=== PATIENT | female | born 1995 | race Caucasian/White ===

== ENCOUNTER 2020-01-29 17:19 | Emergency (ER) | payer OTHER, SELFPAY ==
[2020-01-29 17:34] VITALS: BP 115/80; PULSE 94; RESP 16; TEMP 37.1; O2SAT 100
--- NOTE | 2020-01-29 21:04 | PC.NURSE ---
PATIENT CALLED AT THIS TIME IN WAITING ROOM, NO ANSWER.
--- NOTE | 2020-01-29 21:09 | PC.NURSE ---
PATIENT CALLED AGAIN AT THIS TIME. NO ANSWER.
== END 2020-01-29 21:09 | disposition left against medical advice (07) ==
LOC: ANHED 18:17
DX: Z53.21 Procedure and treatment not carried out due to patient leaving prior to being seen by health care provider (principal)
CPT/HCPCS: 99199

== ENCOUNTER 2022-12-21 13:37 | Emergency (ER) | payer OTHER, SELFPAY ==
[2022-12-21 13:38] VITALS: BP 102/66; PULSE 92; RESP 16; TEMP 36.6; O2SAT 100
--- NOTE | 2022-12-21 14:06 | PC.NURSE ---
pt seen talking with discharged patient and asking for ride in vestibule. pt visualized leaving amb out of vestibule in no acute distress with no issue.
== END 2022-12-21 14:06 | disposition left against medical advice (07) ==
LOC: ANHED 14:32
DX: R56.9 Unspecified convulsions (principal)
CPT/HCPCS: 99199

== ENCOUNTER 2024-07-16 16:39 | Inpatient (IN) | payer OTHER, SELFPAY ==
[2024-07-16] VITALS (8 sets, daily range): BP systolic 94–116; BP diastolic 56–76; PULSE 60–101; RESP 9–20; TEMP 36.8–37.3; O2SAT 97–100; BMI 24.9
--- NOTE | ~2024-07-16 | CT_ITS ---
EXAMINATION: CT brain wo con DATE: 07/16/2024 18:03 INDICATION: Seizure. TECHNIQUE: Computed tomography (CT) of the head was performed without intravenous contrast. The mA wa s adjusted according to patient size. Iterative reconstruction technique was employed. The dose-lengt h product was 605.33 mGy-cm. COMPARISON: None FINDINGS: There is no intracranial hemorrhage, acute infarction, or abnormal intracranial mass lesion . The ventricles are normal in size. There is mild mucosal thickening in the paranasal sinuses. The o rbits are normal. The mastoid air cells are normal. IMPRESSION: 1. Normal brain. Reviewed, dictated and finalized at location A. IMPRESSION: 1. Normal brain.
--- NOTE | 2024-07-16 16:39 | ECG_ITS ---
Test Date: 2024-07-16 16:39:22 Measurements Intervals [place] Rate: 95 P: 54 DE: 112 QRS: 85 QRSD: 84 T: 60 QT: 332 QTc: 418 Interpretive Statements SINUS RHYTHM WITH SHORT DE INTERVAL POSSIBLE RIGHT VENTRICULAR CONDUCTION DELAY [RSR (QR) IN V1/V2] NONSPECIFIC ST & T-WAVE ABNORMALITY No previous ECG available for comparison Electronically Signed On 07-17-2024 15:31:45 CDT by Arlene Banerjee M.D.
[2024-07-16] MEDS: LORazepam INJ (*CRX) 2 MG/ML VIAL 1 MG IV PUSH (16:55)
[2024-07-16 17:05] LABS: Basophils Absolute Auto 0.1 K/mm3 (0.0-0.1); Basophils Percent Auto 0.8 % (0.2-1.2); Eosinophils Percent Auto 0.2 % (0-4.4); Hematocrit 39.8 % (37.0-47.0); Hemoglobin 12.8 g/dL (12.0-15.0); Immature Granulocyte Absolute 0.02 K/mm3 (0.00-0.031); Immature Granulocyte Percent A 0.3 % (0-0.5); Lymphocytes Absolute Auto 1.39 K/mm3 (0.9-3.2); Lymphocytes Percent Auto 23.4 % (18.3-44.2); Mean Corpuscular HGB Conc 32.2 g/dl (32-36); Mean Corpuscular Hemoglobin 26.7 pg (26-34); Mean Corpuscular Volume 82.9 fl (80-100); Mean Platelet Volume 10.1 fl (7.4-10.4); Monocytes Absolute Auto 0.2 K/mm3 (0.1-0.6); Monocytes Percent Auto 3.9 % (2.6-8.5); Neutrophils Absolute Auto 4.2 K/mm3 (1.3-6.7); Neutrophils Percent Auto 71.4 % (45.5-73.1); Platelet Count Result 220 k/mm3 (150-375); Red Cell Distribution Width 13.7 % (11.5-14.5); White Blood Count 5.9 K/mm3 (4.5-10.0)
[2024-07-16 17:14] LABS: Lactic Acid Reflex 2.1 mmol/L (0.7-2.0)
[2024-07-16 17:16] LABS: Alanine Aminotransferase 119 U/L (6-35); Albumin Level 4.1 g/dL (3.5-5.1); Alkaline Phosphatase 73 U/L (38-126); Anion Gap 11 mmol/L (4-12); Aspartate Amino Transferase 80 U/L (14-36); Bilirubin,Total 0.7 mg/dL (0.2-1.3); Blood Urea Nitrogen 17 mg/dL (7-17); Calcium 8.7 mg/dL (8.4-10.2); Carbon Dioxide 25 mmol/L (22-30); Chloride 101 mmol/L (98-107); Estimated CRCL calculation 98 ml/min; Estimated Glomerular Filt Rate > 60; Glucose 112 mg/dL (65-110); Potassium 3.5 mmol/L (3.4-5.0); Sodium 137 mmol/L (137-145)
[2024-07-16 17:22] LABS: Ethanol < 10 mg/dL (<10)
[2024-07-16 17:23] LABS: BEDSIDEPREGUCG Negative
[2024-07-16 17:38] LABS: Add Urine Microscopic? YES; Appearance Urine Cloudy (Clear); Bacteria Urine None Seen /hpf; Bilirubin Urine 1+ (Negative); Blood Urine Negative (Negative); Color Urine Dark Yellow (Yellow); Glucose Urine UA Negative (Negative); Ketones Urine 3+ mg/dL (Negative); Leukocyte Esterase Ur Negative LEU/UL (Negative); Mucus Urine Present /lpf; Nitrate Urine Negative (Negative); Protein Urine 1+ mg/dL (Negative); RBC Urine 0-2 /hpf (0-2); Specific Grav Ur 1.037 (1.001-1.035); Squamous Epithelial Cell Urine Moderate /hpf (Few); WBC Urine 0-5 /hpf (0-3)
[2024-07-16 17:42] LABS: Barbiturate Screen Urine Negative (Negative); Benzodiazepines Screen Urine Negative (Negative)
[2024-07-16] MEDS: SODIUM CHLORIDE 0.9% IV 1,000 ML 999 ML IV CONT (17:42)
[2024-07-16 17:59] LABS: Cannabinoid Screen Urine Negative (Negative); Cocaine Screen Urine Negative (Negative); Methadone Screen Urine Negative (Negative); Opiate Screen Urine Positive (Negative); Phencyclidine Screen Urine Negative (Negative)
[2024-07-16 18:43] LABS: Amphetamine Screen Urine Positive (Negative)
[2024-07-16] MEDS: SODIUM CHLORIDE 0.9% IV 1,000 ML 1000 ML IV CONT (19:25)
--- NOTE | 2024-07-16 19:36 | ED.SEIZURE ---
HPI - Seizure General Chief Complaint: Seizure Stated Complaint: seizures Source: EMS and police Mode of arrival: EMS History of Present Illness HPI Narrative: 28-year-old with a history of drug abuse was brought in from the long-term with repeated seizures as per the EMS she had 4 seizures while she was in the long-term and 1 upon arrival. Not much history can be obtained from the patient as she is postictal state MD complaint: seizure Onset (ago): hour(s) (1) Description of Episode: tonic-clonic movement Witnessed: Yes - by Other ( nurse and the police superintendent) Place: long-term Possible Precipitating Event: none Related Data Allergies Allergy/AdvReac Type Severity Reaction Status Date / Time Penicillins Allergy Mild Anaphylaxis Verified 07/16/24 16:54 tramadol Allergy Unknown N/V AND Verified 07/16/24 16:54 ITCHING ONDANSETRON HCL Allergy Unknown Hives / Uncoded 07/16/24 16:54 Red Face Review of Systems Review of Systems: ROS unobtainable: Yes unobtainable due to mental status Course Course Emergency Course: patient upon arrival to the ER had another seizure which I have not seen but per the nurses were in the room confirmed that it appears to be like a seizure. I did give her 1 mg of Ativan. And she has been sleeping . was notified by the after she had another seizure , will start Dr. Brenda Thacker suggested 1500 mg as loading dose. Vital Signs Vital signs: Vital Signs Temperature 37.0 C 07/16/24 16:44 Pulse Rate 101 H 07/16/24 16:44 Respiratory Rate 9 L 07/16/24 16:44 Blood Pressure 105/70 07/16/24 16:44 Oxygen Delivery Room Air 07/16/24 16:44 Temperature 37.0 C 07/16/24 16:44 Pulse Rate 80 07/16/24 18:45 Respiratory Rate 20 07/16/24 18:45 Blood Pressure 96/57 L 07/16/24 18:45 Pulse Oximetry 100 07/16/24 18:45 Oxygen Delivery Room Air 07/16/24 16:44 MDM - Seizure MDM Narrative Medical decision making narrative: 22-year-old with a history of abuse in the ER with recurrent seizures from chest CT and lab work , will consult Neurology Differential Diagnosis Differential diagnosis: Likely generalized seizure and new onset seizure Lab Data Attestation: I reviewed the patient's lab results. 07/16/24 16:53 07/16/24 16:52 Labs: Lab Results 07/16/24 07/16/24 07/16/24 Range/Units 16:52 16:53 17:16 WBC 5.9 (4.5-10.0) K/mm3 RBC 4.80 (4.2-5.4) M/mm3 Hgb 12.8 (12.0-15.0) g/dL Hct 39.8 (37.0-47.0) % MCV 82.9 (80-100) fl MCH 26.7 (26-34) pg MCHC 32.2 (32-36) g/dl RDW 13.7 (11.5-14.5) % Plt Count 220 (150-375) k/mm3 MPV 10.1 (7.4-10.4) fl Immature Gran % (Auto) 0.3 (0-0.5) % Neut % (Auto) 71.4 (45.5-73.1) % Lymph % (Auto) 23.4 (18.3-44.2) % [place] % (Auto) 3.9 (2.6-8.5) % Eos % (Auto) 0.2 (0-4.4) % Baso % (Auto) 0.8 (0.2-1.2) % Lymph # (Auto) 1.39 (0.9-3.2) K/mm3 [place] # (Auto) 0.2 (0.1-0.6) K/mm3 Eos # (Auto) 0.0 (0-0.3) K/mm3 Baso # (Auto) 0.1 (0.0-0.1) K/mm3 Abs Immat Gran (auto) 0.02 (0.00-0.031) K/mm3 Absolute Neuts (auto) 4.2 (1.3-6.7) K/mm3 Absolute Nucleated RBC 0.000 (0.0-0.012) K/mm3 Nucleated RBC % 0.0 (0.0-0.2) % Sodium 137 (137-145) mmol/L Potassium 3.5 (3.4-5.0) mmol/L Chloride 101 (98-107) mmol/L Carbon Dioxide 25 (22-30) mmol/L Anion Gap 11 (4-12) mmol/L BUN 17 (7-17) mg/dL Creatinine 0.60 L (0.7-1.0) mg/dL Estim Creat Clear Calc 98 ml/min Estimated GFR > 60 (59 - ) Glucose 112 H (65-110) mg/dL Lactic Acid 2.1 H (0.7-2.0) mmol/L Calcium 8.7 (8.4-10.2) mg/dL Total Bilirubin 0.7 (0.2-1.3) mg/dL AST 80 H (14-36) U/L ALT 119 H (6-35) U/L Alkaline Phosphatase 73 (38-126) U/L Total Protein 8.0 (6.3-8.2) g/dL Albumin 4.1 (3.5-5.1) g/dL Urine Color Dark yellow (Yellow) Urine Appearance Cloudy H (Clear) Urine pH
[2024-07-16 20:01] LABS: Reflex Lactic Acid Yes or No Add Lactic
[2024-07-16] MEDS: levETIRAcetam 1500MG/NACL100ML 1,500 MG/100 ML BAG 400 MG IVPB (20:12)
[2024-07-16] MEDS: SODIUM CHLORIDE 0.9% IV 1,000 ML 125 ML IV CONT (20:14)
--- NOTE | 2024-07-16 20:40 | PM.IMHP ---
H&P: HPI History of Present Illness Date/Time: 07/16/24 20:40 Chief Complaint: seizure Narrative: This is a 28-year-old female who was brought from correction facility due to seizures. In emergency room patient had a witnessed seizure. There is no history known of seizures about this patient. Patient has been placed in observation. Most of the history was obtained from reviewing medical records as patient is postictal. EXAMINATION: CT brain wo con DATE: 07/16/2024 18:03 INDICATION: Seizure. TECHNIQUE: Computed tomography (CT) of the head was performed without intravenous contrast. The mA was adjusted according to patient size. Iterative reconstruction technique was employed. The dose-length product was 605.33 mGy-cm. COMPARISON: None FINDINGS: There is no intracranial hemorrhage, acute infarction, or abnormal intracranial mass lesion. The ventricles are normal in size. There is mild mucosal thickening in the paranasal sinuses. The orbits are normal. The mastoid air cells are normal. IMPRESSION: 1. Normal brain. Review of Systems Review of Systems: ROS unobtainable: Yes unobtainable due to mental status (post ictal) [facility] Social History Social History Substance use type: other Last use: unknown; reported to be day 2 withdrawal; specific drug unknown Spiritual care concerns: No Meds Home Medications and Allergies Home Medications Medication Instructions Recorded Confirmed Type dicyclomine 20 mg tablet 20 mg PO BID 07/17/24 07/17/24 History hydroxyzine pamoate 25 mg capsule 25 mg PO BID PRN Anxiety 07/17/24 07/17/24 History hydroxyzine pamoate 50 mg capsule 50 mg PO BID 07/17/24 07/17/24 History Allergies Allergy/AdvReac Type Severity Reaction Status Date / Time Penicillins Allergy Mild Anaphylaxis Verified 07/16/24 16:54 tramadol Allergy Unknown N/V AND Verified 07/16/24 16:54 ITCHING ONDANSETRON HCL Allergy Unknown Hives / Uncoded 07/16/24 16:54 Red Face Vital Signs Vital Signs - 24 hr 07/16/24 16:44 07/16/24 16:44 07/16/24 17:00 Temperature 98.6 F Pulse Rate 101 H 60 Respiratory Rate 9 L 12 Blood Pressure 105/70 100/60 Pulse Oximetry 99 Oxygen Delivery Room Air 07/16/24 17:15 07/16/24 17:30 07/16/24 17:45 Temperature Pulse Rate 62 64 66 Respiratory Rate 13 14 15 Blood Pressure 102/58 L 116/64 97/67 L Pulse Oximetry 100 97 99 Oxygen Delivery 07/16/24 18:45 Temperature Pulse Rate 80 Respiratory Rate 20 Blood Pressure 96/57 L Pulse Oximetry 100 Oxygen Delivery Exam Narrative: lying in bed Const: General: comfortable, no acute distress, well developed, average body habitus and other (post ictal) Nutritional Appearance: average body habitus Orientation/consciousness: oriented to person, oriented to place and Other orientation findings (post ictal) Other: well appearing HENMT: Head: normal to inspection, normocephalic and atraumatic Ears: hearing grossly normal bilaterally Face/Nose/Sinus: normal facial exam Face and sinus: normal facial exam Eyes: General: appearance normal, both eyes and all related structures Pupils: Equal, round and reactive pupils present EOM: EOMs intact bilaterally Neck: Neck: full ROM, no lymphadenopathy and no JVD Thyroid: thyroid normal Lymphatic: no lymphadenopathy noted Resp: Effort & Inspection: normal respiratory effort and able to speak in complete sentences Auscultation: clear to auscultation bilaterally Cardio: Jugular venous distension: no JVD Rate: regular rate Rhythm: regular rhythm Heart sounds: S1 normal heart sound present and S2 normal heart sound present GI: GI Palp: Yes Soft to palpation and Yes No hepatosplenomegaly present : General: Yes deferred Skin: Rashes: no rashes Wounds: no wounds Neuro: General: tone normal, moves all extremities, no focal motor deficits, CN's II-XI intact bilaterally, Unable
[2024-07-16 20:49] LABS: Lactic Acid 0.8 mmol/L (0.7-2.0)
--- NOTE | 2024-07-16 21:09 | ADMGEN ---
This patient, Jossie Colin, was admitted to 3 Med Surg Room 307-01. Patient/family oriented to hospital policies and general routines including ID bracelet, bed and alarms, visiting hours, pain management, procedures, bathroom and other care routines, personal items, smoking policy, room service/diet, and visiting hours. Information on how to activate the Rapid Response Team has been discussed. Patient/Family are encouraged to report perceived risks to care and to ask questions if they do not understand what they are told or what they should do.
--- NOTE | 2024-07-16 23:05 | PC.NURSE ---
attempted to call box person at the given number, but they stated it is the wrong number
[2024-07-17] VITALS: PULSE 83
[2024-07-17] MEDS: SODIUM CHLORIDE 0.9% IV 1,000 ML 125 ML IV CONT (03:08)
[2024-07-17 04:00] VITALS: PULSE 62
[2024-07-17 05:34] VITALS: BP 112/60; PULSE 74; RESP 16; TEMP 36.4; O2SAT 99
[2024-07-17 08:00] VITALS: PULSE 60
[2024-07-17 08:13] VITALS: O2SAT 99
--- NOTE | 2024-07-17 09:23 | PM.DS ---
DS: Admitting Diagnosis Discharge Date 07/17/2024 Admitting Diagnosis New onset seizures DS: Summary Hospital Course Hospital Course: This is a 28-year-old female who was brought from correction facility due to seizures. In emergency room patient had a witnessed seizure. There is no history known of seizures about this patient. Patient has been placed in observation. Most of the history was obtained from reviewing medical records as patient is postictal. Today during the examination patient reports that she was using fentanyl and heroin IV. She denies any past medical history of she has seizure. We believe her the new onset of seizures seizure in the ED it is due to the withdrawal from the drug abuse. Patient wants to leave AMA today in spite of insisting to get medical care. Patient was explained the consequences of AMA including . Patient is aware and able to understand the consequence but still insist on leaving the medical facility. We advised to seek care or call 911 in case of events including chest pain, palpitation, seizure or other symptoms. Patient has UDS positive for opiates and amphetamine. Status at Discharge Cognitive/behavioral status at discharge: AMA Time Spent with Patient Time attestation: Total time spent providing and/or coordinating discharge services:45mins Exam Narrative: lying in bed Const: General: comfortable, no acute distress, well developed, average body habitus and other (post ictal) Nutritional Appearance: average body habitus Orientation/consciousness: oriented to person, oriented to place, patient oriented x3 and Other orientation findings (post ictal) Other: well appearing but agitated HENMT: Head: normal to inspection, normocephalic and atraumatic Ears: hearing grossly normal bilaterally Face/Nose/Sinus: normal facial exam Face and sinus: normal facial exam Eyes: General: appearance normal, both eyes and all related structures Neck: Neck: full ROM, no lymphadenopathy and no JVD Thyroid: thyroid normal Lymphatic: no lymphadenopathy noted Resp: Effort & Inspection: normal respiratory effort and able to speak in complete sentences Cardio: Jugular venous distension: no JVD : General: Yes deferred Skin: Rashes: no rashes Wounds: no wounds Neuro: General: oriented to person, oriented to place, patient oriented x3, tone normal, moves all extremities, no focal motor deficits, CN's II-XI intact bilaterally, Unable to assess gait and other (post ictal) Cognition (Neuro): normal cognition and abnormal cognition (post ictal) Speech: normal speech Motor exam (neuro): 5/5 motor strength present throughout DS: Data Data Completed and Pending Labs on day of discharge: Labs from last 24 hours 07/16/24 07/16/24 07/16/24 20:36 17:21 17:16 WBC RBC Hgb Hct MCV MCH MCHC RDW Plt Count MPV Immature Gran % (Auto) Neut % (Auto) Lymph % (Auto) [place] % (Auto) Eos % (Auto) Baso % (Auto) Lymph # (Auto) [place] # (Auto) Eos # (Auto) Baso # (Auto) Abs Immat Gran (auto) Absolute Neuts (auto) Absolute Nucleated RBC Nucleated RBC % Sodium Potassium Chloride Carbon Dioxide Anion Gap BUN Creatinine Estim Creat Clear Calc Estimated GFR Glucose Lactic Acid 0.8 Calcium Total Bilirubin AST ALT Alkaline Phosphatase Total Protein Albumin Urine Color Dark yellow Urine Appearance Cloudy H Urine pH 6.0 Ur Specific [place] 1.037 H Urine Protein 1+ H Urine Glucose (UA) Negative Urine Ketones 3+ H Ur Blood (Man) Negative Urine Nitrate Negative Urine Bilirubin 1+ H Urine Urobilinogen 1.0 Leukocyte Esterase Rfl Negative Urine RBC 0-2 Urine WBC 0-5 Ur Squamous Epith Cells Moderate Urine Bacteria None seen Urine Casts 6-10 Urine Mucus Present POC Urine HCG, Qual Negative POC Ur Pr
--- NOTE | 2024-07-17 11:38 | WPDNEURCNPN ---
Consult date: 07/17/24 HPI: Jossie Colin is a 28 year old female Admitted to the hospital on transfer from the correction facility due to the seizures and patient did have a witnessed seizure in the emergency room. Unfortunately she left the hospital against medical advise before I saw the patient. [facility] Social History Social History Smoking status: Never smoker Alcohol intake: never Substance use: current Substance use type: opiates Other substance usage details: fentanyl Last use: 07/14/24 Do You Feel Safe in your Home?: Yes Lack of Transportation: No Lack of Food: Never True Current Housing: I Have Housing Concerned About Future Housing: No Difficulty Paying Gas/Electric Bills: No Difficulty Paying for Meds: No Currently Unemployed: No Education: High School Diploma/GED Difficulty w/ Childcare or Family Care: No Spiritual care concerns: No Meds Home Medications and Allergies Home Medications Medication Instructions Recorded Confirmed Type dicyclomine 20 mg tablet 20 mg PO BID 07/17/24 07/17/24 History hydroxyzine pamoate 25 mg capsule 25 mg PO BID PRN Anxiety 07/17/24 07/17/24 History hydroxyzine pamoate 50 mg capsule 50 mg PO BID 07/17/24 07/17/24 History Allergies Allergy/AdvReac Type Severity Reaction Status Date / Time Penicillins Allergy Mild Anaphylaxis Verified 07/16/24 16:54 tramadol Allergy Unknown N/V AND Verified 07/16/24 16:54 ITCHING ONDANSETRON HCL Allergy Unknown Hives / Uncoded 07/16/24 16:54 Red Face Vital Signs Vital Signs - 24 hr 07/16/24 16:44 07/16/24 16:44 07/16/24 17:00 Temperature 37.0 C Pulse Rate 101 H 60 Respiratory Rate 9 L 12 Blood Pressure 105/70 100/60 Pulse Oximetry 99 Oxygen Delivery Room Air Fraction of Inspired Oxygen 07/16/24 17:15 07/16/24 17:30 07/16/24 17:45 Temperature Pulse Rate 62 64 66 Respiratory Rate 13 14 15 Blood Pressure 102/58 L 116/64 97/67 L Pulse Oximetry 100 97 99 Oxygen Delivery Fraction of Inspired Oxygen 07/16/24 18:45 07/16/24 20:56 07/16/24 21:32 Temperature 37.3 C 36.8 C Pulse Rate 80 86 88 Respiratory Rate 20 20 16 Blood Pressure 96/57 L 100/76 94/56 L Pulse Oximetry 100 99 100 Oxygen Delivery Fraction of Inspired Oxygen 07/17/24 00:00 07/17/24 00:00 07/17/24 05:34 Temperature 36.4 C L Pulse Rate 83 74 Respiratory Rate 16 Blood Pressure 112/60 Pulse Oximetry 99 Oxygen Delivery Room Air Fraction of Inspired Oxygen 07/17/24 04:00 07/17/24 08:13 07/17/24 08:00 Temperature Pulse Rate 62 60 Respiratory Rate Blood Pressure Pulse Oximetry 99 Oxygen Delivery Room Air Fraction of Inspired Oxygen 21 Results Labs 07/16/24 16:53 07/16/24 16:52 Labs: Short CBC 07/16/24 Range/Units 16:53 WBC 5.9 (4.5-10.0) K/mm3 Hgb 12.8 (12.0-15.0) g/dL Hct 39.8 (37.0-47.0) % Plt Count 220 (150-375) k/mm3 BMP 07/16/24 16:52 Sodium 137 Potassium 3.5 Chloride 101 Carbon Dioxide 25 BUN 17 Creatinine 0.60 L Glucose 112 H Calcium 8.7 Liver Function 07/16/24 Range/Units 16:52 Total Bilirubin 0.7 (0.2-1.3) mg/dL AST 80 H (14-36) U/L ALT 119 H (6-35) U/L Alkaline Phosphatase 73 (38-126) U/L Albumin 4.1 (3.5-5.1) g/dL Urine 07/16/24 Range/Units 17:16 Urine Color Dark yellow (Yellow) Urine Appearance Cloudy H (Clear) Urine pH 6.0 (5.0-9.0) Ur Specific [place] 1.037 H (1.001-1.035) Urine Protein 1+ H (Negative) mg/dL Urine Glucose (UA) Negative (Negative) mg/dL
--- NOTE | 2024-07-17 12:07 | PC.NURSE ---
Received report from night RN that this pt was from the [facility] and had two guards watching her. Went and assessed pt who was tremoring and diaphoretic. Pt requesting a dose of withdrawal meds . Called provider who asked for details, gave a quick synopsis. Provider asked how we dealt with opioid withdrawals; I let him know we did not have a protocol to follow. I let him know that I could pull up a COWS scale to use. When the patient was scored, she scored a 10 at 0800. Provider gave verbal orders. This RN heard officers stating that they were releasing her from their custody. Pt then called out that she wanted a cab called. This RN to pt room to offer medications, but pt stated no she wanted a cab to take her home. Pt advised via provider through RN that we would not be able to call her a cab. Pt given numbers. PRovider and RN to bedside to explain seriousness of opioid withdrawal and concern for pt safety. Pt educated on seizures, calling 911, returning to ED if further seizures occur. Pt states understanding. AMA form signed and pt ambulated down busby to elevator. Verbal orders never put into system as pt left.
== END 2024-07-17 09:20 | disposition left against medical advice (07) | DRG 770 ==
LOC: ANHED 19:57 → ANH3MEDSUR 20:51
PROVIDERS: Admitting Provider Internal Medicine; Emergency Provider Family Medicine; Visit Provider General Practice
DX: F11.13 Opioid abuse with withdrawal (principal); R56.9 Unspecified convulsions
CPT/HCPCS: 36415; 70450; 80053; 80307; 81001; 81025; 83605; 85025; 93005; 96361; 96374; 99285; J1953; J2060; J7030

== ENCOUNTER 2024-08-10 00:54 | Emergency (ER) | payer OTHER, SELFPAY ==
--- NOTE | ~2024-08-10 | CT_ITS ---
Non-contrast Head CT History: Altered mental status, overdose COMPARISON: 07/16/2024 Technique: Axial non-contrast imaging of the brain was performed. Dose reduction technique was used on this scan by utilizing automated exposure control and iterative reconstruction technique. The dose -length product (DLP) was 605.33 mGy-cm. Findings: There is no evidence of intracranial hemorrhage, mass lesion, or acute infarct. Brain par enchyma appears normal. The ventricles and subarachnoid spaces are normal in size. The calvarium ap pears normal. The visualized paranasal sinuses and mastoid air cells are clear. Impression: No significant abnormality seen. Reviewed, dictated and finalized at location . Impression: No significant abnormality seen.
--- NOTE | ~2024-08-10 | XR_ITS ---
Portable chest x-ray Comparison: None Clinical History: Overdose Findings: Lungs are clear, without focal consolidation or pleural effusion. Cardiomediastinal silho uette is unremarkable. Bones and soft tissues are unremarkable. Impression: Normal chest. Reviewed, dictated and finalized at location M. Impression: Normal chest.
[2024-08-10 00:53] VITALS: PULSE 124; RESP 16; TEMP 36.6; O2SAT 100
[2024-08-10 01:05] LABS: Basophils Percent Auto 0.4 % (0.2-1.2); Eosinophils Percent Auto 0.1 % (0-4.4); Hematocrit 36.7 % (37.0-47.0); Hemoglobin 12.2 g/dL (12.0-15.0); Immature Granulocyte Absolute 0.02 K/mm3 (0.00-0.031); Immature Granulocyte Percent A 0.3 % (0-0.5); Lymphocytes Absolute Auto 1.23 K/mm3 (0.9-3.2); Lymphocytes Percent Auto 15.7 % (18.3-44.2); Mean Corpuscular HGB Conc 33.2 g/dl (32-36); Mean Corpuscular Hemoglobin 27.1 pg (26-34); Mean Corpuscular Volume 81.4 fl (80-100); Mean Platelet Volume 9.9 fl (7.4-10.4); Monocytes Absolute Auto 0.5 K/mm3 (0.1-0.6); Monocytes Percent Auto 6.8 % (2.6-8.5); Neutrophils Percent Auto 76.7 % (45.5-73.1); Platelet Count Result 201 k/mm3 (150-375); Red Blood Count 4.51 M/mm3 (4.2-5.4); Red Cell Distribution Width 13.8 % (11.5-14.5); White Blood Count 7.8 K/mm3 (4.5-10.0)
[2024-08-10 01:18] LABS: Alanine Aminotransferase 170 U/L (6-35); Albumin Level 4.1 g/dL (3.5-5.1); Alkaline Phosphatase 62 U/L (38-126); Anion Gap 9 mmol/L (4-12); Aspartate Amino Transferase 111 U/L (14-36); Bilirubin,Total 0.7 mg/dL (0.2-1.3); Blood Urea Nitrogen 14 mg/dL (7-17); Calcium 8.8 mg/dL (8.4-10.2); Carbon Dioxide 26 mmol/L (22-30); Chloride 103 mmol/L (98-107); Estimated CRCL calculation 102 ml/min; Estimated Glomerular Filt Rate > 60; Glucose 109 mg/dL (65-110); Potassium 4.1 mmol/L (3.4-5.0); Sodium 138 mmol/L (137-145)
--- NOTE | 2024-08-10 02:15 | ED.GENADULT ---
HPI - General Adult General Chief complaint: Unspecified Stated complaint: possible OD on opiates Time Seen by Provider: 08/10/24 01:46 Source: patient, EMS and police Mode of arrival: EMS Limitations: no limitations History of Present Illness HPI narrative: Patient is a 28-year-old female who presents the ED via EMS with report of possible opioid overdose. Patient reports she was driving from a gas station when she was pulled over by the police. She was arrested for an outstanding warrant. Per PD, patient then became unresponsive in the back of the police car. They administered intranasal Narcan and patient became alert again. They did report possible seizure-like activity. EMS was then notified to bring the patient here. Patient denies previous seizure history. She states she feels slightly jittery currently from the Narcan. She has overdose previously and required Narcan previously. She admits to daily fentanyl use. She snorts the fentanyl. Denies IVDA. She did use fentanyl earlier today. She states the police believes she swallowed something in the back of the car but she denies this. Denies cough, shortness of breath, nausea, dizziness. Does complain of fuzziness to her head. Related Data Home Medications Medication Instructions Recorded Confirmed dicyclomine 20 mg tablet 20 mg PO BID 07/17/24 07/17/24 hydroxyzine pamoate 25 mg capsule 25 mg PO BID PRN Anxiety 07/17/24 07/17/24 hydroxyzine pamoate 50 mg capsule 50 mg PO BID 07/17/24 07/17/24 Allergies Allergy/AdvReac Type Severity Reaction Status Date / Time Penicillins Allergy Mild Anaphylaxis Verified 08/10/24 01:00 tramadol Allergy Unknown N/V AND Verified 08/10/24 01:00 ITCHING ONDANSETRON HCL Allergy Unknown Hives / Uncoded 08/10/24 01:00 Red Face Review of Systems Review of Systems: All systems reviewed & are unremarkable except as noted in HPI. All systems reviewed & are unremarkable except as noted in HPI and below PMFSH Social History Social History Smoking status: Never smoker Alcohol intake: never Substance use: current Substance use type: opiates 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, snorts, denies IVDA Do You Feel Safe in your Home?: Yes Lack of Transportation: No Lack of Food: Never True Current Housing: I Have Housing Concerned About Future Housing: No Difficulty Paying Gas/Electric Bills: No Difficulty Paying for Meds: No Currently Unemployed: No Education: High School Diploma/GED Difficulty w/ Childcare or Family Care: No Spiritual care concerns: No Exam Narrative: GENERAL: Mildly disheveled and unkempt appearing, non-toxic, in no acute distress. HEAD: Normocephalic, atraumatic. RESPIRATORY: Airway patent, respirations nonlabored. Clear to auscultation bilaterally, no rales, rhonchi, wheezing. CARDIOVASCULAR: Regular rate and rhythm without murmurs, rubs, or gallops. MUSCULOSKELETAL: Moves all extremities. No gross deformities. SKIN: Warm, dry, normal color. Dirt on hands and arms. NEURO: A&O X3. Speech clear. Cranial nerves II-XII grossly intact. No ataxic movements. PSYCHIATRIC: Mildly flat affect. Normal interaction. Course Vital Signs Vital signs: Vital Signs Temperature 97.8 F 08/10/24 00:53 Pulse Rate 124 H 08/10/24 00:53 Respiratory Rate 16 08/10/24 00:53 Pulse Oximetry 100 08/10/24 00:53 Oxygen Delivery Room Air 08/10/24 00:53 Temperature 97.8 F 08/10/24 00:53 Pulse Rate 124 H 08/10/24 00:53 Respiratory Rate 16 08/10/24 00:53 Pulse Oximetry 100 08/10/24 00:53 Oxygen Delivery Room Air 08/10/24 00:53 Medical Decision Making [facility] Narrative Medical decision making narrative: Patient presented to ED after suspected opioid overdose after being pulled over by the police. Patient tachycardic upon arrival, oxygen stable on room air. She was given IN Narca
[2024-08-10] MEDS: SODIUM CHLORIDE 0.9% IV 1,000 ML 999 ML IV CONT (02:37)
[2024-08-10 02:47] LABS: Ethanol < 10 mg/dL (<10)
[2024-08-10 02:59] LABS: Magnesium 1.7 mg/dL (1.6-2.3)
--- NOTE | 2024-08-10 04:52 | PC.NURSE ---
contacted and wnts updates when patient is ready to leave. [phone] Darshana.
[2024-08-10 05:07] LABS: Barbiturate Screen Urine Negative (Negative); Benzodiazepines Screen Urine Negative (Negative)
[2024-08-10 05:12] VITALS: BP 110/76; PULSE 79; RESP 15; O2SAT 97
[2024-08-10 05:13] LABS: Add Urine Microscopic? YES; Appearance Urine Cloudy (Clear); Bacteria Urine 1+ /hpf; Bilirubin Urine Negative (Negative); Blood Urine 1+ (Negative); Color Urine Yellow (Yellow); Glucose Urine UA Negative (Negative); Ketones Urine Trace mg/dL (Negative); Leukocyte Esterase Ur 1+ LEU/UL (Negative); Need Manual Microscopic Reviewed; Nitrate Urine Negative (Negative); Protein Urine 1+ mg/dL (Negative); Specific Grav Ur 1.021 (1.001-1.035); Squamous Epithelial Cell Urine Moderate /hpf (Few); WBC Urine 0-5 /hpf (0-3); pH Urine 7.5 (5.0-9.0)
[2024-08-10 05:14] LABS: Cannabinoid Screen Urine Negative (Negative); Cocaine Screen Urine Negative (Negative); Methadone Screen Urine Negative (Negative); Opiate Screen Urine Negative (Negative); Phencyclidine Screen Urine Negative (Negative)
[2024-08-10 05:25] LABS: Amphetamine Screen Urine Positive (Negative)
== END 2024-08-10 05:12 | disposition home or self-care (01) ==
PROVIDERS: Emergency Medicine; Emergency Provider Physician Assistant
DX: T40.411A Poisoning by fentanyl or fentanyl analogs, accidental (unintentional), initial encounter (principal)
CPT/HCPCS: 36415; 70450; 71045; 80053; 80307; 81001; 83735; 85025; 87086; 87088; 96360; 99284; J7030

== ENCOUNTER 2025-10-05 10:39 | Emergency (ER) | payer OTHER, SELFPAY ==
[2025-10-05 10:42] VITALS: BP 109/86; PULSE 103; RESP 16; TEMP 36.4; O2SAT 100
[2025-10-05 10:48] VITALS: BP 109/86; PULSE 103; RESP 17; O2SAT 100
--- NOTE | 2025-10-05 11:44 | ED.SEIZURE ---
HPI - Seizure General Chief Complaint: Seizure Stated Complaint: seizure Time Seen by Provider: 10/05/25 11:25 Source: patient and EMS Mode of arrival: EMS Limitations: no limitations History of Present Illness HPI Narrative: This is a 29-year-old female with reported history of seizure disorder who presents to the ED from senior living for seizure activity. Per EMS, patient began to have seizure activity while in senior living the last approximately 1 minute. Apparently her blood sugar was 68 there so she was given 200 mL of D10 and repeat sugar after that was 248. Patient reports that she remembers having a seizure. She feels back to her normal self at this time. 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 Seizure History: Yes Related Data Home Medications ?Medication ?Instructions ?Recorded ?Confirmed ?Last Taken ?Type dicyclomine 20 mg tablet 20 mg PO BID 07/17/24 07/17/24 07/16/24 History hydroxyzine pamoate 25 mg capsule 25 mg PO BID PRN Anxiety 07/17/24 07/17/24 Unknown History hydroxyzine pamoate 50 mg capsule 50 mg PO BID 07/17/24 07/17/24 07/16/24 History Allergies Allergy/AdvReac Type Severity Reaction Status Date / Time Penicillins Allergy Mild Anaphylaxis Verified 08/10/24 01:00 tramadol Allergy Unknown N/V AND Verified 08/10/24 01:00 ITCHING ONDANSETRON HCL Allergy Unknown Hives / Uncoded 08/10/24 01:00 Red Face Review of Systems Review of Systems: Gen.: Denies fevers or chills Eyes: Denies eye pain or visual change ENT: Denies congestion Respiratory: Denies shortness of breath or cough CV: Denies chest pain or palpitations GI: Denies abdominal pain nausea, emesis or diarrhea denies burning, urgency, frequency or hematuria Musculoskeletal: Denies back pain or muscle pain Neuro: Denies numbness, tingling, weakness or focal weakness Skin: Denies rash Except as documented, all other systems reviewed and negative PMFSH Social History Social History Smoking status: Never smoker Alcohol intake: never Substance use: current Substance use type: opiates 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, snorts, 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 CARDIOVASCULAR: Regular rate and rhythm without murmurs rubs or gallops. ABDOMINAL: Soft, nontender, nondistended, no rebound or guarding MUSCULOSKELETAl: Moves all extremities. No clubbing, cyanosis or edema. NEURO: Awake and alert. Following commands, speech normal, no focal deficits SKIN:: Warm, dry. No rashes lesions or abrasions PSYCHIATRIC: Normal affect/mood, Course Vital Signs Vital signs: Vital Signs Temperature 97.6 F 10/05/25 10:42 Pulse Rate 103 H 10/05/25 10:42 Respiratory Rate 16 10/05/25 10:42 Blood Pressure 109/86 10/05/25 10:42 Pulse Oximetry 100 10/05/25 10:42 Oxygen Delivery Room Air 10/05/25 10:42 Temperature 97.6 F 10/05/25 10:42 Pulse Rate 103 H 10/05/25 10:48 Respiratory Rate 17 10/05/25 10:48 Blood Pressure 109/86 10/05/25 10:48 Pulse Oximetry 100 10/05/25 10:48 Oxygen Delivery Room Air 10/05/25 10:42 MDM - Seizure MDM Narrative Medical decision making narrative: 29-year-old female Presenting for seizure active. On initial evaluation patient was in no acute distress afebrile, hemodynamic stable. Differentials include but are not limited to: Epilepsy, PN ES, hypoglycemia, electrolyte abnormality Notable exam findings: Nonfocal neuro exam, heart and lungs clear. Abdomen soft nontender. Patient does reportedly have a history of seizures but is not any medications for this. Per nursing staff, patient was reportedly having seizure-like activity while awaiting a bed but they were able to place the and above the patient's head which slowly drifted down towards her head and after sternal rub, she woke up immediately. Low suspicion that patient has having epileptic seizures. On my evaluation of the patient, she had return to baseline she may have had some level of hypoglycemia earlier but this appears to be improved at this time. Patient is requesting to go home at this time. I did discuss her withdrawal from fentanyl and discussed rehabilitation options with her and she was agreeable to looking at those options. Patient was deemed appropriate for discharge at this time. Patient was advised follow-up with their PCP in the next week for re-evaluation. Patient was agreeable to this plan. Given strict return precautions. Medical Records Attestation: I reviewed the patient's medical records. Discharge Plan Discharge Clinical Impression: Episode of shaking Patient Disposition: Home Condition: Stable Instructions: Antibiotic Form, Nonepileptic Seizures (ED) Additional Instructions: Please stop using IV drugs. You were given resources for rehabilitation, please see these out. You were given a referral to Dr. Ramos, Family Medicine, [address] [place] [address]. Return to the ED for any new or worsening symptoms. Patient Language: Swedish Prescriptions: No Action naloxone [Narcan] 4 mg/actuation spray,non-aerosol 4 mg intranasal Q2M PRN (Reason: opioid overdose) Qty: 2 0RF Rx Instructions: spray 1 dose into ONE nostril; alternate nostrils w each dose until help arrives hydroxyzine pamoate 50 mg Capsule 50 mg PO BID dicyclomine [Bentyl] 20 mg Tablet 20 mg PO BID hydroxyzine pamoate 25 mg Capsule 25 mg PO BID PRN (Reason: Anxiety) Follow-up/Referrals: PHYSICIAN,LOGGING CONTRACTOR [Primary Care Provider, Internal Medicine] Lucho Ramos MD [Physician, Family Practice]
== END 2025-10-05 12:07 | disposition home or self-care (01) ==
PROVIDERS: Emergency Provider Student in an Organized Health Care Education/Training Program
DX: G25.89 Other specified extrapyramidal and movement disorders (principal); F11.23 Opioid dependence with withdrawal
CPT/HCPCS: 99282